=== PATIENT | female | born 2000 | race African-American/Black ===

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

== ENCOUNTER 2020-01-16 09:31 | Emergency (ER) | payer BC, SELFPAY ==
[2020-01-16 09:45] VITALS: BP 125/60; PULSE 94; RESP 16; TEMP 37.2; O2SAT 98
--- NOTE | 2020-01-16 09:52 | ED.SKABFB ---
HPI - Skin/Abscess/Foreign Bdy General Chief complaint: Skin/Abscess/Foreign Body Stated complaint: itchy hands/feet Time Seen by Provider: 01/16/20 09:53 Source: patient and RN notes reviewed Mode of arrival: ambulatory Limitations: no limitations History of Present Illness HPI narrative: 19-year-old female presents with concern for rash on her hands and feet. She reports the rash is burning and itching. She denies any interventions for the rash. Reports approximately 5 days history of rash. She reports the rash worsens with hot water. She denies fever, malaise, sore throat, headache, nausea, cough, shortness of breath, body aches. Denies difficulty swallowing, swollen tongue, swollen lips. MD complaint: rash Related Data Home Medications Medication Instructions Recorded Confirmed No Home Medications 01/16/20 01/16/20 Allergies Allergy/AdvReac Type Severity Reaction Status Date / Time No Known Allergies Allergy Verified 01/16/20 10:00 Review of Systems Review of Systems: Narrative: CONSTITUTIONAL: Denies malaise, chills, sweats, or fever. ENT: Denies rhinorrhea, congestion, sinus pain, otalgia or sore throat. CARDIOVASCULAR: Denies chest pain, palpitations RESPIRATORY: Denies cough or dyspnea. GASTROINTESTINAL: Denies abdominal pain, nausea, vomiting, diarrhea SKIN: Reports itchy, burning rash on hands and feet. MUSCULOSKELETAL: Denies myalgia. NEUROLOGIC: Denies numbness, weakness, or headache. All systems reviewed & are unremarkable except as noted in HPI and below PMFSH Social History Social History Smoking status: Never smoker Second hand tobacco smoke exposure: No Gender identity (if verbalized by the patient): Female Comments At time of signature, agree with nursing past medical, surgical, social and family history. There is no relevant family history pertinent to the presenting complaint Exam Narrative: Exam Narrative: GENERAL: Well-appearing, well-nourished, and in no acute distress. HEAD: Normocephalic EYES: PERRLA, conjunctivae clear ENT: Nares clear. Mucous membranes moist. Oropharynx without erythema or lesions. Tonsils not enlarged and without exudate. NECK: Supple. No lymphadenopathy. CHEST: No respiratory distress. Clear to auscultation. No bony deformities, no asymmetry. Speaks in full sentences. HEART: Regular rate and rhythm. No murmur heard. Normal peripheral pulses. SKIN: Warm, dry. Patches of erythema, small papules noted to hands and feet. No tracking, scabbing, vesicles noted. NEURO: Alert and oriented x3. PSYCH: Normal mood and affect Course Course Emergency Course: Patient is aware of diagnosis, understands and agrees to treatment plan. Anticipatory guidance given. Patient agrees to follow-up as directed and is aware of reasons to seek care at the emergency department. Portions of this record may have been created with voice recognition software Vital Signs Vital signs: Vital Signs Temperature 99.0 F 01/16/20 09:45 Pulse Rate 94 01/16/20 09:45 Respiratory Rate 16 01/16/20 09:45 Blood Pressure 125/60 01/16/20 09:45 Pulse Oximetry 98 01/16/20 09:45 Temperature 99.0 F 01/16/20 09:45 Pulse Rate 94 01/16/20 09:45 Respiratory Rate 16 01/16/20 09:45 Blood Pressure 125/60 01/16/20 09:45 Pulse Oximetry 98 01/16/20 09:45 Reviewed. MDM - Skin/Abscess/Foreign Bdy MDM Narrative Medical decision making narrative: Does not appear at this time to be erythema multiforme, bullous, SJS, TEN; no evidence at this time to suggest RMSF, endocarditis or Lyme disease; patient looks well, nontoxic and is tolerating oral intake; no neurologic signs or symptoms; no headache, photophobia or neck pain; afebrile; appropriate for initial outpatient treatment; discussed the importance of follow-up, patient agrees; question, viral exanthema, contact dermatitis, allergic dermatitis, eczema, urticaria, scabi
== END 2020-01-16 10:05 | disposition home or self-care (01) ==
PROVIDERS: Emergency Provider Nurse Practitioner
DX: R21 Rash and other nonspecific skin eruption (principal)
CPT/HCPCS: 99213; G0463

== ENCOUNTER 2020-02-10 14:07 | Emergency (ER) | payer SELFPAY ==
[2020-02-10 14:12] VITALS: BP 118/62; PULSE 86; RESP 14; TEMP 36.8; O2SAT 100
--- NOTE | 2020-02-10 14:39 | ED.GENADULT ---
HPI - General Adult General Chief complaint: Wound/Laceration Stated complaint: left index finger lac Time Seen by Provider: 02/10/20 14:08 Source: patient Mode of arrival: ambulatory Limitations: no limitations History of Present Illness HPI narrative: Patient is a 19-year-old female who presents with left index injury was cutting something open when she sliced the distal tip of her finger sustaining a skin avulsion patient notes mild aching pain worse with touch. Patient has immunizations up-to-date. Patient denies radicular symptoms or paresthesias Related Data Home Medications Medication Instructions Recorded Confirmed No Home Medications 01/16/20 01/16/20 Allergies Allergy/AdvReac Type Severity Reaction Status Date / Time No Known Allergies Allergy Verified 01/16/20 10:00 Review of Systems Review of Systems: All systems reviewed & are unremarkable except as noted in HPI and below PMFSH Social History Social History Smoking status: Never smoker Second hand tobacco smoke exposure: No Gender identity (if verbalized by the patient): Female Exam Narrative: Exam Narrative: GENERAL: Well-appearing, well-nourished, and in no acute distress. HEAD: Normocephalic, atraumatic. EYES: PERRLA and EOMI. ENT: Nares clear, no rhinorrhea or epistaxis. Mucous membranes moist. EXTREMITIES: Normal range of motion. No edema. SKIN: Warm, dry, no rash. Half centimeter superficial skin avulsion of the distal left index finger NEURO: No focal deficits. Alert and oriented x3. Neurovascularly intact PSYCH: Normal mood and affect. Course Course Emergency Course: Patient in the room in no distress aware of case findings treatment plan and diagnosis Vital Signs Vital signs: Vital Signs Temperature 98.3 F 02/10/20 14:12 Pulse Rate 86 02/10/20 14:12 Respiratory Rate 14 02/10/20 14:12 Blood Pressure 118/62 02/10/20 14:12 Pulse Oximetry 100 02/10/20 14:12 Temperature 98.3 F 02/10/20 14:12 Pulse Rate 86 02/10/20 14:12 Respiratory Rate 14 02/10/20 14:12 Blood Pressure 118/62 02/10/20 14:12 Pulse Oximetry 100 02/10/20 14:12 Medical Decision Making MDM Narrative Medical decision making narrative: Patients injury or pain is consistent with musculoskeletal etiology. No signs of neurological or vascular compromise on exam. Compartments and tisues are soft without signs of compartment syndrome. Pain is felt appropriate for further evaluation on an outpatient basis. Vital Signs Vital Signs: Vital Signs Temperature 98.3 F 02/10/20 14:12 Pulse Rate 86 02/10/20 14:12 Respiratory Rate 14 02/10/20 14:12 Blood Pressure 118/62 02/10/20 14:12 Pulse Oximetry 100 02/10/20 14:12 Temperature 98.3 F 02/10/20 14:12 Pulse Rate 86 02/10/20 14:12 Respiratory Rate 14 02/10/20 14:12 Blood Pressure 118/62 02/10/20 14:12 Pulse Oximetry 100 02/10/20 14:12 Discharge Plan Discharge Clinical Impression: Avulsion of skin Patient Disposition: Home, Self-Care Condition: Stable Instructions: Antibiotic Form, Skin Avulsion (ED) Additional Instructions: Follow up with primary care in the next 7 days for re-evaluation return if symptoms worsen or concerns, any increase in redness swelling pain or fever over 100.5 Clean wound with mild soapy water. Apply antibiotic ointment and clean dressing at least three times daily Prescriptions: No Action prednisone 20 mg tablet 40 mg PO DAILY 5 Days Qty: 10 RF: 0 triamcinolone acetonide 0.1 % cream 1 applic TOPICAL BID 7 Days Qty: 80 RF: 0 No Home Medications RF: 0 Follow-up/Referrals: PHYSICIAN,CLEANING ATTENDANT [Primary Care Provider] - Milad Shafer MD [Physician] - Stand Alone Forms: Work/School Release IP
[2020-02-10 14:59] VITALS: BP 130/74; PULSE 80; RESP 12; O2SAT 99
--- NOTE | 2020-03-03 11:09 | PC.NURSE ---
LATE ENTRY This note is being entered to document information to the patient's record. The following information was omitted on [02/10/20], by [Camron Pineda]. Correct finger of injury is left index finger not right.
== END 2020-02-10 15:00 | disposition home or self-care (01) ==
PROVIDERS: Emergency Provider Emergency Medicine
DX: S61.201A Unspecified open wound of left index finger without damage to nail, initial encounter (principal); W26.0XXA Contact with knife, initial encounter
CPT/HCPCS: 99282